=== PATIENT | female | born 1990 ===

== ENCOUNTER 2017-04-13 14:06 | Emergency (ER) | payer SELFPAY ==
[~2017-04-13] VITALS: Ht 157.5 cm; Wt 60.0 kg
[2017-04-13 14:09] VITALS: Ht 157.5 cm; Wt 60.0 kg
== END 2017-04-13 15:03 | disposition left against medical advice (07) ==
LOC: FTE 14:06
DX: Z53.21 Procedure and treatment not carried out due to patient leaving prior to being seen by health care provider (principal)